=== PATIENT | female | born 1995 | race African-American/Black ===

== ENCOUNTER 2017-04-05 22:14 | Emergency (ER) | payer OTHER ==
[~2017-04-05] VITALS: Ht 162.6 cm; Wt 73.0 kg
[2017-04-05 23:30] VITALS: BP 135/89
== END 2017-04-06 08:10 | disposition left against medical advice (07) ==
LOC: ER 04-06 07:45
DX: R10.9 Unspecified abdominal pain (principal); Z53.21 Procedure and treatment not carried out due to patient leaving prior to being seen by health care provider